=== PATIENT | female | born 1955 | race Caucasian/White ===

== ENCOUNTER 2017-03-13 11:21 | Emergency (ER) | payer MEDICARE, OTHER ==
[2017-03-13 11:31] VITALS: BP 118/61; PULSE 81; RESP 16; TEMP 99
--- NOTE | 2017-03-13 12:01 | ED ---
General Adult HPI - General Chief complaint: Extremity Injury, Upper Stated complaint: rt arm injury, swelling Time Seen by Provider: 03/13/17 11:50 Source: patient, RN notes reviewed Mode of arrival: ambulatory Limitations: no limitations - History of Present Illness Initial comments: Patient 61-year-old female who presents emergency room today with a chief complaint of increased pain to the right wrist. She does admit to a fall that occurred for 5 days ago. She states she fell backwards. She does admit that she's had some bruising and some swelling locally to the area. She states she' s noticed a bump that is very tender. She denies any other complaints or associated symptoms. Patient denies any recent fever, chills, shortness of breath, chest pain, back pain, abdominal pain, nausea or vomiting, numbness or tingling, dysuria or hematuria, constipation or diarrhea, headaches or visual changes, or any other complaints. - Related Data Home Medications Medication Instructions Recorded Confirmed HYDROcodone/APAP 10-325MG [[place] 10 mg PO QID PRN 01/17/14 03/13/17 10-325] clonazePAM [KlonoPIN] 2 mg PO TID 01/17/14 03/13/17 Venlafaxine HCl ER [Effexor Xr] 150 mg PO QAM 02/19/15 03/13/17 Aspirin [Adult Low Dose Aspirin EC] 81 mg PO DAILY 11/26/15 03/13/17 QUEtiapine [SEROquel] 100 mg PO HS 01/21/16 03/13/17 Meloxicam [Mobic] 15 mg PO DAILY 03/13/17 03/13/17 Pravastatin Sodium [Pravachol] 40 mg PO QAM 03/13/17 03/13/17 Venlafaxine HCl [Effexor XR] 75 mg PO QAM 03/13/17 03/13/17 Allergies Allergy/AdvReac Type Severity Reaction Status Date / Time No Known Allergies Allergy Verified 03/13/17 11:52 Review of Systems ROS Statement: Those systems with pertinent positive or pertinent negative responses have been documented in the HPI. ROS Other: All systems not noted in ROS Statement are negative. Past Medical History Past Medical History: COPD, Hyperlipidemia Additional Past Medical History / Comment(s): "PINCHED NERVE", CHRONIC BACK PAIN. History of Any Multi-Drug Resistant Organisms: None Reported Past Surgical History: Hysterectomy Additional Past Surgical History / Comment(s): EXC PADMINI CATARACTS. PAIN CLINIC PROCEDURES, Past Anesthesia/Blood Transfusion Reactions: No Reported Reaction Past Psychological History: Anxiety, Depression Smoking Status: Current every day smoker Past Alcohol Use History: Occasional Past Drug Use History: None Reported - Past Family History Father Family Medical History: Cancer Additional Family Medical History / Comment(s): COLON CA Sister(s) Family Medical History: Cancer Additional Family Medical History / Comment(s): 2 SISTERS HAD CA General Exam - General Exam Comments Initial Comments: General: The patient is awake and alert, in no distress, and does not appear acutely ill. Neck: The neck is supple, there is no tenderness or JVD. Cardiovascular: There is a regular rate and rhythm. No murmur, rub or gallop is appreciated. Respiratory: Lungs are clear to auscultation, respirations are non-labored, breath sounds are equal. No wheezes, stridor, rales, or rhonchi. Musculoskeletal: Patient does have some bruising swelling to the right wrist and right hand. No tenderness down to the hand or digits. Patient is tender over the distal right ulna. No tenderness to the right elbow. Shows full range of motion all areas. Strength is 5/5. Sensation intact. Pulses equal bilaterally 2+. Neurological: A&O x 3. CN II-XII intact, There are no obvious motor or sensory deficits. Coordination appears grossly intact. Speech is normal. Skin: Skin is warm and dry and no rashes or lesions are noted. Psychiatric: Normal mood and affect. Limitations: no limitations Course Vital Signs 03/13/17 11:29 Temperature 99 F Pulse Rate 81 Respiratory 16 Rate Blood Pressure 118/61 O2 Sat by Pulse 97 Oximetry Medical Decision Making - Medical Decision Making Patient presents to the emergency room for an injury to the right wrist. X-ray was ordered. Prior to x-rays being obtained patient left without telling nursing staff. Disposition Clinical Impression: Wrist injury Disposition: Left Against Medical Advice Condition: Undetermined Referrals: Destinee Godfrey MD [Primary Care Provider] - 1-2 days Time of Disposition: 12:03 (Patient eloped)
== END 2017-03-13 12:02 | disposition left against medical advice (07) ==
LOC: EC 11:21
DX: S60.211A Contusion of right wrist, initial encounter (principal); E78.5 Hyperlipidemia, unspecified; G89.29 Other chronic pain; F32.9 Major depressive disorder, single episode, unspecified; F41.9 Anxiety disorder, unspecified; F17.200 Nicotine dependence, unspecified, uncomplicated; Z79.1 Long term (current) use of non-steroidal anti-inflammatories (NSAID); Z79.82 Long term (current) use of aspirin; Z79.899 Other long term (current) drug therapy; W18.30XA Fall on same level, unspecified, initial encounter
CPT/HCPCS: 99283

== ENCOUNTER 2017-03-20 09:04 | Emergency (ER) | payer MEDICARE, OTHER ==
--- NOTE | 2017-03-20 09:46 | ED ---
Fall HPI - General Chief Complaint: Fall Stated Complaint: fall Time Seen by Provider: 03/20/17 09:11 Source: patient, old records reviewed Mode of arrival: ambulatory - History of Present Illness Initial Comments: Patient is a 61-year-old female presents to the emergency room for evaluation of multiple complaints. Patient states that she slipped down steps out of a pool on 03/07/17. Patient states after the incident she began having right wrist pain and swelling along with tailbone pain. Patient states that she was seen here about a week later but was unable to get any x-rays done because her ride was here and she left. Patient states she is still continuing to have right wrist pain, swelling and bruising now in her hand. Patient states it hurts to press over the area where she has a large bump over her wrist that was present since the fall injury. Patient states she still continued to have tailbone pain from when she fell. Patient denies saddle anesthesia. Patient denies urinary or fecal incontinence. Patient denies pain radiating down the legs. Patient states she takes Penn Laird for chronic pain which is not helping. Patient also states that she's having right foot pain. Patient states that her headboard fell on top of her foot a few weeks ago and has been causing her pain ever since. Patient denies any other injuries or complaints at this time. - Related Data Home Medications Medication Instructions Recorded Confirmed HYDROcodone/APAP 10-325MG [[place] 10 mg PO QID PRN 01/17/14 03/20/17 10-325] clonazePAM [KlonoPIN] 2 mg PO TID 01/17/14 03/20/17 Venlafaxine HCl ER [Effexor Xr] 150 mg PO QAM 02/19/15 03/20/17 Aspirin [Adult Low Dose Aspirin EC] 81 mg PO DAILY 11/26/15 03/20/17 QUEtiapine [SEROquel] 100 mg PO HS 01/21/16 03/20/17 Meloxicam [Mobic] 15 mg PO DAILY 03/13/17 03/20/17 Pravastatin Sodium [Pravachol] 40 mg PO QAM 03/13/17 03/20/17 Venlafaxine HCl [Effexor XR] 75 mg PO QAM 03/13/17 03/20/17 Allergies Allergy/AdvReac Type Severity Reaction Status Date / Time No Known Allergies Allergy Verified 03/20/17 10:19 Review of Systems ROS Statement: Those systems with pertinent positive or pertinent negative responses have been documented in the HPI. ROS Other: All systems not noted in ROS Statement are negative. Past Medical History Past Medical History: COPD, Hyperlipidemia Additional Past Medical History / Comment(s): "PINCHED NERVE", CHRONIC BACK PAIN. History of Any Multi-Drug Resistant Organisms: None Reported Past Surgical History: Hysterectomy Additional Past Surgical History / Comment(s): EXC PADMINI CATARACTS. PAIN CLINIC PROCEDURES, Past Anesthesia/Blood Transfusion Reactions: No Reported Reaction Past Psychological History: Anxiety, Depression Smoking Status: Current every day smoker Past Alcohol Use History: Occasional Past Drug Use History: None Reported - Past Family History Father Family Medical History: Cancer Additional Family Medical History / Comment(s): COLON [place] Sister(s) Family Medical History: Cancer Additional Family Medical History / Comment(s): 2 SISTERS HAD CA General Exam - General Exam Comments Initial Comments: Sitting exam room no acute distress. Limitations: no limitations General appearance: alert, in no apparent distress Head exam: Present: atraumatic, normocephalic, normal inspection Eye exam: Present: normal appearance, PERRL, EOMI Pupils: Present: normal accommodation ENT exam: Present: normal exam Neck exam: Present: normal inspection Respiratory exam: Present: normal lung sounds bilaterally. Absent: respiratory distress Cardiovascular Exam: Present: regular rate, normal rhythm, normal heart sounds Right Hand Wrist exam: Present: full ROM, tenderness (Tenderness and swelling over the dorsal portion of the wrist with a small palpable lump.), ecchymosis ( Ecchymosis over the dorsal portion of the wrist and dorsal hand). Absent: normal inspection Neuro motor exam: Present: wrist extension intact, thumb opposition intact, thumb IP flexion intact, thumb adduction intact, fingers 2-5 abduction intact Vascular: Present: normal capillary refill (Capillary refill less than 2 seconds ), radial pulse (2+), ulnar pulse (2+) Right Foot/Toe exam: Present: normal inspection, full ROM, tenderness (Tenderness on palpating over dorsal foot). Absent: swelling, abrasion Neurovascular tendon exam: Present: no vascular compromise. Absent: pulse deficit (2+ dorsal pedal and posterior tibial pulses), abnormal cap refill ( Capillary refill less than 2 seconds) Back exam: Present: normal inspection, other (Pain on palpating over the coccyx bone.) Neurological exam: Present: alert, oriented X3, CN II-XII intact, normal gait Psychiatric exam: Present: normal affect, normal mood Skin exam: Present: warm, dry, intact, normal color. Absent: rash Course Vital Signs 03/20/17 03/20/17 09:05 11:24 Temperature 97.5 F L 97.6 F Pulse Rate 81 73 Respiratory 17 19 Rate Blood Pressure 141/72 154/70 O2 Sat by Pulse 97 100 Oximetry Medical Decision Making - Medical Decision Making patient is a 61-year-old female presents to the emergency room for evaluation of fall injury on 03/07/17. X-ray showed no acute findings. Patient advised to apply heat over hematoma area of wrist and to follow-up with primary care provider if symptoms are not improving. Patient has Penn Laird at home for pain. Patient states she understands everything that was discussed with her. Return parameters discussed. Case discussed with Dr. Lau. - Radiology Data Radiology results: report reviewed, image reviewed Disposition Clinical Impression: Fall, Traumatic hematoma of right wrist, Contusion of foot, right, Tailbone injury Disposition: HOME SELF-CARE Condition: Good Instructions: Contusion in Adults (ED), Hematoma (ED) Additional Instructions: Continue taking at home pain medications as needed. Please follow-up with primary care provider in 7-10 days if symptoms are not improving. If new symptoms develop or symptoms worsen, please return to the ER. Referrals: Destinee Godfrey MD [Primary Care Provider] - 1-2 days Time of Disposition: 11:15
--- NOTE | 2017-03-20 10:19 | XR ---
EXAMINATION TYPE: XR forearm RT DATE OF EXAM: 03/20/2017 COMPARISON: NONE HISTORY: Pain Two views of the forearm demonstrate that the osseous structures appear to be intact and the joint sp aces appear to be preserved. There is no acute fracture or dislocation. IMPRESSION: 1. No acute fracture or dislocation
--- NOTE | 2017-03-20 10:19 | XR ---
EXAMINATION TYPE: XR wrist complete RT DATE OF EXAM: 03/20/2017 COMPARISON: NONE HISTORY: Pain TECHNIQUE: Four views submitted. FINDINGS: The osseous structures are intact. The joint spaces are preserved and there is no acute fracture or dislocation. IMPRESSION: 1. No definite acute fracture or dislocation if symptoms persist, follow-up study in 7 to 10 days wo uld be suggested
--- NOTE | 2017-03-20 10:22 | XR ---
EXAMINATION TYPE: XR sacrum coccyx DATE OF EXAM: 03/20/2017 COMPARISON: NONE HISTORY: Pain Three views are submitted. Sacrum is intact. SI joints are symmetric. Coccyx appears to be intact. Visualized pelvic structures intact. IMPRESSION: 1. No acute fracture. There is thickening and fullness to the sacrococcygeal segment. Recommend kiet rt-term outpatient MRI for further assessment
--- NOTE | 2017-03-20 10:24 | XR ---
EXAMINATION TYPE: XR hand complete RT DATE OF EXAM: 03/20/2017 COMPARISON: NONE HISTORY: 61-year-old female pain after fall 2 weeks ago TECHNIQUE: 3 views FINDINGS: There is some bony irregularity seen along the ulnar sided base of the first proximal phalanx suggest ing prior capsular or UCL injury. Tiny ossific density along the ulnar aspect of the second DIP joint . Otherwise, no acute fracture, subluxation, or dislocation. IMPRESSION: 1. Tiny density along the ulnar aspect of the second DIP joint. If there is any pinpoint tenderness h ere, this could represent a tiny fragmented spur or tiny capsular avulsion fracture. If there is no p ain here, the finding is probably chronic. 2. Bony findings along the thumb suggests prior UCL injury. 3. Otherwise, no acute osseous abnormality seen.
--- NOTE | 2017-03-20 10:25 | XR ---
EXAMINATION TYPE: XR foot complete RT DATE OF EXAM: 03/20/2017 COMPARISON: 06/17/2014 HISTORY: 61-year-old female pain from recent contusion TECHNIQUE: 3 views FINDINGS: Moderate degenerative change at the first MTP joint. Prominent bunion. No acute fracture, subluxation , or dislocation. IMPRESSION: Prominent bunion and moderate first MTP joint OA. No acute osseous abnormality seen.
[2017-03-20 11:27] VITALS: BP 154/70; PULSE 73; RESP 19; TEMP 97.6
== END 2017-03-20 11:27 | disposition home or self-care (01) ==
LOC: EC 09:04
DX: S60.211A Contusion of right wrist, initial encounter (principal); S90.31XA Contusion of right foot, initial encounter; S39.92XA Unspecified injury of lower back, initial encounter; E78.5 Hyperlipidemia, unspecified; F32.9 Major depressive disorder, single episode, unspecified; F41.9 Anxiety disorder, unspecified; F17.200 Nicotine dependence, unspecified, uncomplicated; Z79.1 Long term (current) use of non-steroidal anti-inflammatories (NSAID); Z79.82 Long term (current) use of aspirin; Z79.899 Other long term (current) drug therapy; W10.9XXA Fall (on) (from) unspecified stairs and steps, initial encounter
CPT/HCPCS: 72220; 99284

== ENCOUNTER → 2018-02-25 | Outpatient (CLI) | payer MEDICARE, OTHER ==
--- NOTE | 2018-03-01 07:56 | MM ---
Reason for exam: screening (asymptomatic). Last mammogram was performed 2 years and 5 months ago. History: Patient is postmenopausal. Family history of breast cancer in paternal grandmother at age 55. Took estrogen for 2 years 8 months. Physical Findings: A clinical breast exam by your physician is recommended on an annual basis and results should be correlated with mammographic findings. MG 3D Screening Mammo W/Cad Bilateral CC and MLO view(s) were taken. Prior study comparison: October 05, 2015, bilateral MG screening mammo w CAD. October 04, 2014, bilateral MG screening mammo w CAD. There are scattered fibroglandular densities. Finding: There are typically benign round calcifications in the right breast. There is no discrete abnormality. ASSESSMENT: Benign, BI-RAD 2 RECOMMENDATION: Routine screening mammogram of both breasts in 1 year.
== END | disposition home or self-care (01) ==
LOC: RADMAMWWP 10:27
PROVIDERS: ATTEND Internal Medicine
DX: Z12.31 Encounter for screening mammogram for malignant neoplasm of breast (principal)
CPT/HCPCS: 77063; 77067

== ENCOUNTER → 2019-04-07 | Outpatient (CLI) | payer MEDICARE, OTHER ==
--- NOTE | 2019-04-07 13:58 | US ---
EXAMINATION TYPE: US liver DATE OF EXAM: 04/07/2019 COMPARISON: NONE CLINICAL HISTORY: R94.5 abnormal liver function. Abnormal liver function test. EXAM MEASUREMENTS: Liver Length: 17.5 cm Gallbladder Wall: 0.14 cm CBD: 0.3 cm Right Kidney: 9.8 x 4.0 x 4.4 cm Pancreas: Duct visualized 0.15 cm, within normal limits Liver: Increased attenuation throughout with suboptimal visualization of the portal triads, most com monly related to hepatic steatosis. Additionally there are two hypoechoic areas seen adjacent to gall bladder largest 2.4 x 1.3 x 2.2 centimeters. These areas likely represent focal fatty sparing. Gallbladder: wnl Evidence for sonographic Mor[place]aya's sign: No CBD: wnl Right Kidney: wnl IMPRESSION: Sonographic findings most commonly related to hepatic steatosis appearing moderate in deg ree. Correlate with liver function test results additionally there are 2 geographic areas of hypoatte nuation that likely represent focal fatty sparing. These could be confirmed with three-phase abdomen.
== END | disposition home or self-care (01) ==
LOC: RADUSWWP 11:15
PROVIDERS: ATTEND Internal Medicine
DX: R93.2 Abnormal findings on diagnostic imaging of liver and biliary tract (principal); R94.5 Abnormal results of liver function studies
CPT/HCPCS: 76705

== ENCOUNTER → 2019-06-05 | Outpatient (CLI) | payer MEDICARE, OTHER ==
--- NOTE | 2019-06-05 14:30 | XR ---
EXAMINATION TYPE: XR chest 2V DATE OF EXAM: 06/05/2019 HISTORY: COUGH. REFERENCE: Previous study dated 10/04/2014. FINDINGS: There is a stable cardiophrenic angle mass, likely representing epicardial fat pad. Lungs a re otherwise clear. Pleural spaces are clear. The heart is not enlarged. IMPRESSION: NO ACUTE INTRATHORACIC ABNORMALITY.
== END | disposition home or self-care (01) ==
LOC: RADXRMAIN 12:23
PROVIDERS: ATTEND Internal Medicine
DX: R05 Cough (principal)
CPT/HCPCS: 71046

== ENCOUNTER → 2019-08-26 | Outpatient (CLI) | payer MEDICARE, OTHER ==
--- NOTE | 2019-08-29 10:42 | MM ---
Reason for exam: screening (asymptomatic). Last mammogram was performed 1 year and 6 months ago. History: Patient is postmenopausal. Family history of breast cancer in paternal grandmother at age 55. Took estrogen for 2 years 8 months. Physical Findings: A clinical breast exam by your physician is recommended on an annual basis and results should be correlated with mammographic findings. MG 3D Screening Mammo W/Cad Bilateral CC and MLO view(s) were taken. Prior study comparison: February 25, 2018, bilateral MG 3d screening mammo w/cad. October 05, 2015, bilateral MG screening mammo w CAD. The breast tissue is heterogeneously dense. This may lower the sensitivity of mammography. There is no discrete abnormality. No significant changes when compared with prior studies. ASSESSMENT: Negative, BI-RAD 1 RECOMMENDATION: Routine screening mammogram of both breasts in 1 year.
== END | disposition home or self-care (01) ==
LOC: RADMAMWWP 13:31
PROVIDERS: ATTEND Internal Medicine
DX: Z12.31 Encounter for screening mammogram for malignant neoplasm of breast (principal)
CPT/HCPCS: 77063; 77067

== ENCOUNTER 2020-03-21 07:10 | Day surgery (SDC) | payer MEDICARE, OTHER ==
[2020-03-19 15:49] VITALS: BMI 26.7
[~2020-03-21 07:10] MED LIST: LACTATED RINGERS 1,000 ML IV SCH; LIDOCAINE 1% (10MG/ML) FOR IV START INTRADERMA PRN
[2020-03-21 08:01] VITALS: TEMP 96.8
[2020-03-21] MEDS ORDERED: PROPOFOL 10 MG/ML 20 ML VIAL IV ONE (08:01)
[2020-03-21 08:04] LABS: Glucose,Whole Blood 131 mg/dL (75-99)
[2020-03-21] MEDS ORDERED: IV FLUID CONTINUATION 1,000 ML IV ONE (08:22)
--- NOTE | 2020-03-21 08:26 | P.PCN ---
Date of Procedure: 03/21/20 Procedure(s) Performed: BRIEF HISTORY: Patient is a 64-year-old pleasant female scheduled for an elective colonoscopy as a part of evaluation of prior history of colon polyps. PROCEDURE PERFORMED: Colonoscopy with snare polypectomy. PREOPERATIVE DIAGNOSIS: History of colon polyps. IV sedation per Anesthesia. PROCEDURE: After informed consent was obtained, the patient, was brought into the endoscopy unit. IV sedation was administered by Anesthesia under continuous monitoring. Digital rectal examination was normal. Initially the Olympus CF-160 flexible video colonoscope was then inserted in the rectum, gradually advanced into the cecum without any difficulty. Careful examination was performed as the scope was gradually being withdrawn. Ileocecal valve and the appendiceal orifice were visualized and appeared normal. Prep was excellent. Mucosa of the cecum appeared normal. In the ascending colon there was a 7 mm polyp that was removed by snare polypectomy. Rest of the, ascending colon, transverse colon, descending colon, sigmoid colon, and rectum appeared normal. Scattered sigmoid diverticulosis. Retroflexion was performed in the rectum and no lesions were seen. The patient tolerated the procedure well. IMPRESSION: 7 mm ascending colon polyp status post polypectomy Scattered sigmoid diverticulosis RECOMMENDATIONS: Findings of this examination were discussed with the patient as well as her family. She was advised to follow with the biopsy results. If the biopsy shows an adenoma she can have a repeat colonoscopy in 5 years.
[2020-03-21 08:42] VITALS: BP 141/66; PULSE 80; RESP 18
== END 2020-03-21 09:07 | disposition home or self-care (01) ==
LOC: ORWHC2ENDO 07:10
PROVIDERS: ATTEND Internal Medicine Gastroenterology
DX: Z12.11 Encounter for screening for malignant neoplasm of colon (principal); D12.2 Benign neoplasm of ascending colon; K57.30 Diverticulosis of large intestine without perforation or abscess without bleeding; Z86.010 Personal history of colon polyps; K58.9 Irritable bowel syndrome, unspecified; I10 Essential (primary) hypertension; E78.5 Hyperlipidemia, unspecified; F17.210 Nicotine dependence, cigarettes, uncomplicated; E11.9 Type 2 diabetes mellitus without complications; F32.9 Major depressive disorder, single episode, unspecified; Z79.84 Long term (current) use of oral hypoglycemic drugs; Z79.899 Other long term (current) drug therapy; Z98.41 Cataract extraction status, right eye; Z98.42 Cataract extraction status, left eye; Z90.710 Acquired absence of both cervix and uterus; Z88.1 Allergy status to other antibiotic agents; Z88.5 Allergy status to narcotic agent
CPT/HCPCS: 88305; 45385; J2704

== ENCOUNTER → 2020-04-20 | Outpatient (CLI) | payer MEDICARE ==
--- NOTE | 2020-04-20 15:49 | US ---
EXAMINATION TYPE: US gallbladder DATE OF EXAM: 04/20/2020 COMPARISON: 04/07/2019 CLINICAL HISTORY: 64-year-old female R10.11 RUQ ABD PAIN. Pt states RUQ pain post prandial TECHNIQUE: Multiple sonographic images of the right upper quadrant pain. FINDINGS: EXAM MEASUREMENTS: Liver Length: 17.1 cm Gallbladder Wall: 0.1 cm CBD: 0.4 cm Right Kidney: 10.1 x 3.6 x 4.3 cm Pancreas: wnl, tail obscured by overlying bowel gas. Borderline dilated main pancreatic duct at 3 mm . Liver: Difficult to penetrate, heterogeneous with multiple probable areas of fatty sparing near port a and GB Gallbladder: wnl Evidence for sonographic [place]aya's sign: No CBD: wnl Right Kidney: wnl IMPRESSION: 1. Severe hepatic steatosis. Correlate with LFTs and lipid profile, the uterus factors. 2. The main hepatic duct is borderline dilated. This may be chronic for the patient as a sequela of p rior inflammation. Correlate with amylase and lipase levels. Consider short interval follow-up to naeem ssess the duct in 4-6 weeks especially as the entire pancreas could not be optimally visualized.
== END | disposition home or self-care (01) ==
LOC: RADUSWWP 12:10
PROVIDERS: ATTEND Internal Medicine
DX: K76.0 Fatty (change of) liver, not elsewhere classified (principal); K83.8 Other specified diseases of biliary tract
CPT/HCPCS: 76705

== ENCOUNTER 2020-12-20 16:47 | Emergency (ER) | payer MEDICARE, OTHER ==
[2020-12-20 16:57] VITALS: RESP 18; TEMP 98.7
[2020-12-20] MEDS ORDERED: SODIUM CHLORIDE 0.9% 1,000 ML IV STA (18:00)
--- NOTE | 2020-12-20 18:14 | ED ---
General Adult HPI - General Chief complaint: Shortness of Breath Stated complaint: Covid+, SOB Time Seen by Provider: 12/20/20 16:50 Source: patient, EMS, RN notes reviewed, old records reviewed Mode of arrival: EMS - History of Present Illness Initial comments: This is a 65-year-old female presents emergency Department with the complaint that her cold symptoms are worsening. Patient states that she was diagnosed with COVID on the sixth but she had symptoms at the beginning of the month. Patient states her fatigue is getting worse she's lightheaded and having some shortness of breath per patient denies any chest pain or palpitations. Patient denies abdominal pain patient denies nausea vomiting or diarrhea. Patient denies any recent injury or trauma. Patient denies any headache patient denies any numbness or weakness. - Related Data Home Medications Medication Instructions Recorded Confirmed HYDROcodone/APAP 10-325MG [[place] 10 mg PO QID PRN 01/17/14 03/21/20 10-325] clonazePAM [KlonoPIN] 2 mg PO BID 01/17/14 03/21/20 Venlafaxine HCl ER [Effexor Xr] 150 mg PO QAM 02/19/15 03/21/20 QUEtiapine [SEROquel] 150 mg PO HS 01/21/16 03/21/20 Pravastatin Sodium [Pravachol] 40 mg PO QAM 03/13/17 03/21/20 Albuterol Inhaler [Ventolin Hfa 1 puff INHALATION DAILY PRN 03/19/20 03/21/20 Inhaler] Dicyclomine HCl 10 mg PO BID 03/19/20 03/21/20 Ergocalciferol [Vitamin D2] 50,000 unit PO HARMAN 03/19/20 03/21/20 clonazePAM [KlonoPIN] 1 mg PO 1400 03/19/20 03/21/20 metFORMIN HCL [Glucophage] 500 mg PO BID 03/19/20 03/21/20 Allergies Allergy/AdvReac Type Severity Reaction Status Date / Time No Known Allergies Allergy Verified 03/21/20 07:56 Review of Systems ROS Statement: Those systems with pertinent positive or pertinent negative responses have been documented in the HPI. ROS Other: All systems not noted in ROS Statement are negative. Past Medical History Past Medical History: COPD, Diabetes Mellitus, Hyperlipidemia Additional Past Medical History / Comment(s): "PINCHED NERVE", CHRONIC BACK PAIN. hx colon polyps History of Any Multi-Drug Resistant Organisms: None Reported Past Surgical History: Hysterectomy Additional Past Surgical History / Comment(s): EXC PADMINI CATARACTS. PAIN CLINIC PROCEDURES, Past Anesthesia/Blood Transfusion Reactions: No Reported Reaction, Motion Sickness Past Psychological History: Anxiety, Depression Smoking Status: Current every day smoker Past Alcohol Use History: Occasional Past Drug Use History: Marijuana - Past Family History Father Family Medical History: Cancer Additional Family Medical History / Comment(s): COLON CA Sister(s) Family Medical History: Cancer Additional Family Medical History / Comment(s): 2 SISTERS HAD CA General Exam - General Exam Comments Initial Comments: GENERAL: Patient is well-developed and well-nourished. Patient is nontoxic and well- hydrated and is in mild distress. ENT: Neck is soft and supple. No significant lymphadenopathy is noted. Oropharynx is clear. Moist mucous membranes. Neck has full range of motion without eliciting any pain. EYES: The sclera were anicteric and conjunctiva were pink and moist. Extraocular movements were intact and pupils were equal round and reactive to light. Eyelids were unremarkable. PULMONARY: Unlabored respirations. Good breath sounds bilaterally. No audible rales rhonchi or wheezing was noted. CARDIOVASCULAR: There is a regular rate and rhythm without any murmurs gallops or rubs. ABDOMEN: Soft and nontender with normal bowel sounds. SKIN: Skin is clear with no lesions or rashes and otherwise unremarkable. NEUROLOGIC: Patient is alert and oriented x3. Cranial nerves II through XII are grossly intact. Motor and sensory are also intact. Normal speech, volume and content. Symmetrical smile. MUSCULOSKELETAL: Normal extremities with adequate strength and full range of motion. No lower extremity swelling or edema. No calf tenderness. LYMPHATICS: No significant lymphadenopathy is noted PSYCHIATRIC: Normal psychiatric evaluation. Course Vital Signs 12/20/20 12/20/20 16:49 19:44 Temperature 98.7 F Pulse Rate 78 70 Respiratory 18 18 Rate Blood Pressure 106/65 93/60 O2 Sat by Pulse 96 97 Oximetry Medical Decision Making - Medical Decision Making EKG shows normal sinus rhythm at 81 bpm [place] interval 160 QRS is 76 QT intervals 380 QTC is 441. Patient's EKG shows no ST segment elevation or depression. Chest x-ray shows no acute abnormality. - Lab Data Result diagrams: 12/20/20 18:07 12/20/20 18:07 Lab Results 12/20/20 12/20/20 12/20/20 Range/Units 18:07 18:07 18:07 WBC 11.3 H (3.8-10.6) k/uL RBC 4.80 (3.80-5.40) m/uL Hgb 14.4 (11.4-16.0) gm/dL Hct 42.3 (34.0-46.0) % MCV 88.0 (80.0-100.0) fL MCH 30.1 (25.0-35.0) pg MCHC 34.2 (31.0-37.0) g/dL RDW 12.8 (11.5-15.5) % Plt Count 275 (150-450) k/uL MPV 7.7 Neutrophils % 54 % Lymphocytes % 33 % Monocytes % 8 % Eosinophils % 2 % Basophils % 0 % Neutrophils # 6.1 (1.3-7.7) k/uL Lymphocytes # 3.8 (1.0-4.8) k/uL Monocytes # 0.9 (0-1.0) k/uL Eosinophils # 0.2 (0-0.7) k/uL Basophils # 0.0 (0-0.2) k/uL D-Dimer 0.46 (<0.60) mg/L FEU Sodium 140 (137-145) mmol/L Potassium 4.5 (3.5-5.1) mmol/L Chloride 104 (98-107) mmol/L Carbon Dioxide 26 (22-30) mmol/L Anion Gap 10 mmol/L BUN 17 (7-17) mg/dL Creatinine 0.74 (0.52-1.04) mg/dL Est GFR (CKD-EPI)AfAm >90 (>60 ml/min/1.73 sqM) Est GFR (CKD-EPI)NonAf 87 (>60 ml/min/1.73 sqM) Glucose 131 H (74-99) mg/dL Calcium 9.8 (8.4-10.2) mg/dL Magnesium 2.1 (1.6-2.3) mg/dL Total Bilirubin 0.4 (0.2-1.3) mg/dL AST 20 (14-36) U/L ALT 18 (4-34) U/L Alkaline Phosphatase 108 (38-126) U/L Total Protein 6.5 (6.3-8.2) g/dL Albumin 3.9 (3.5-5.0) g/dL Disposition Clinical Impression: COVID-19 Disposition: HOME SELF-CARE Condition: Good Instructions (If sedation given, give patient instructions): Coronavirus Disease 2019 (COVID-19) Is patient prescribed a controlled substance at d/c from ED?: No Referrals: Destinee Godfrey MD [Primary Care Provider] - 1-2 days Time of Disposition: 19:46
[2020-12-20 18:17] LABS: Basophils % (A) 0 %; Eosinophils # (A) 0.2 k/uL (0-0.7); Eosinophils % (A) 2 %; HCT 42.3 % (34.0-46.0); HGB 14.4 gm/dL (11.4-16.0); Lymphocytes # (A) 3.8 k/uL (1.0-4.8); Lymphocytes % (A) 33 %; MCH 30.1 pg (25.0-35.0); MCHC 34.2 g/dL (31.0-37.0); Mean Platelet Volume 7.7; Monocytes # (A) 0.9 k/uL (0-1.0); Monocytes % (A) 8 %; Neutrophils # (A) 6.1 k/uL (1.3-7.7); Neutrophils % (A) 54 %; Platelet Count 275 k/uL (150-450); RDW 12.8 % (11.5-15.5); WBC 11.3 k/uL (3.8-10.6)
[2020-12-20 18:25] LABS: ALT 18 U/L (4-34); AST 20 U/L (14-36); African American GFR (CKD) >90 (>60 ml/min/1.73 sqM); Albumin 3.9 g/dL (3.5-5.0); Alkaline Phosphatase 108 U/L (38-126); Anion Gap 10 mmol/L; Blood Urea Nitrogen 17 mg/dL (7-17); Calcium 9.8 mg/dL (8.4-10.2); Carbon Dioxide 26 mmol/L (22-30); Chloride 104 mmol/L (98-107); Glucose 131 mg/dL (74-99); Magnesium 2.1 mg/dL (1.6-2.3); Non-African American GFR(CKD) 87 (>60 ml/min/1.73 sqM); Potassium 4.5 mmol/L (3.5-5.1); Sodium 140 mmol/L (137-145); Total Bilirubin 0.4 mg/dL (0.2-1.3); Total Protein 6.5 g/dL (6.3-8.2)
--- NOTE | 2020-12-20 19:05 | XR ---
EXAMINATION: XR chest 2V DATE AND TIME: 12/20/2020 6:18 PM CLINICAL INDICATION: PHH; Chest Pain TECHNIQUE: Departmental protocol COMPARISON: 06/05/2019 FINDINGS: The lungs are clear. The pleural spaces are negative. The cardiac silhouette is not enlarged. The remainder of the mediastinal silhouette is unremarkable. The skeletal structures and soft tissues are negative for acute findings. IMPRESSION: No acute radiographic process; stable appearance.
[2020-12-20 19:44] VITALS: BP 93/60; PULSE 70
== END 2020-12-20 20:16 | disposition home or self-care (01) ==
LOC: EC 16:47
DX: U07.1 COVID-19 (principal); E78.5 Hyperlipidemia, unspecified; F17.200 Nicotine dependence, unspecified, uncomplicated; J44.9 Chronic obstructive pulmonary disease, unspecified; E11.9 Type 2 diabetes mellitus without complications; F12.90 Cannabis use, unspecified, uncomplicated; F41.9 Anxiety disorder, unspecified; F32.9 Major depressive disorder, single episode, unspecified; Z79.899 Other long term (current) drug therapy; Z79.84 Long term (current) use of oral hypoglycemic drugs
CPT/HCPCS: 36415; 71046; 80053; 83735; 85025; 85379; 93005; 96360; 99285

== ENCOUNTER → 2020-12-25 | Outpatient (CLI) | payer MEDICARE, OTHER ==
--- NOTE | 2020-12-25 20:21 | XR ---
EXAMINATION TYPE: XR chest 2V DATE OF EXAM: 12/25/2020 CLINICAL HISTORY: M79.642. Short of breath. Covid positive and beginning of December. TECHNIQUE: Frontal and lateral view of the chest. COMPARISON: 12/20/2020 chest radiograph FINDINGS: The cardiomediastinal silhouette is within normal limits for size. Pulmonary vasculature i s normal. There is no focal air space opacity, pleural effusion, or pneumothorax seen. Degenerative c hanges of the spine. IMPRESSION: No acute cardiopulmonary process.
== END | disposition home or self-care (01) ==
LOC: RADXRMAIN 17:41
PROVIDERS: ATTEND Internal Medicine
DX: R06.02 Shortness of breath (principal)
CPT/HCPCS: 71046

== ENCOUNTER → 2021-01-22 | Outpatient (CLI) | payer MEDICARE, OTHER ==
--- NOTE | 2021-01-24 14:47 | MM ---
Reason for exam: screening (asymptomatic). Last mammogram was performed 1 year and 5 months ago. History: Patient is postmenopausal. Family history of breast cancer in paternal grandmother at age 55 and breast cancer in paternal aunt. Took estrogen for 2 years 8 months. Physical Findings: A clinical breast exam by your physician is recommended on an annual basis and results should be correlated with mammographic findings. MG 3D Screening Mammo W/Cad Bilateral CC and MLO view(s) were taken. Prior study comparison: August 26, 2019, bilateral MG 3d screening mammo w/cad. February 25, 2018, bilateral MG 3d screening mammo w/cad. The breast tissue is heterogeneously dense. This may lower the sensitivity of mammography. Stable benign calcifications. There is no discrete abnormality. No significant changes when compared with prior studies. ASSESSMENT: Benign, BI-RAD 2 RECOMMENDATION: Routine screening mammogram of both breasts in 1 year.
== END | disposition home or self-care (01) ==
LOC: RADMAMWWP 09:50
PROVIDERS: ATTEND Internal Medicine
DX: Z12.31 Encounter for screening mammogram for malignant neoplasm of breast (principal); Z78.0 Asymptomatic menopausal state; Z80.3 Family history of malignant neoplasm of breast
CPT/HCPCS: 77063; 77067

== ENCOUNTER 2021-05-22 13:02 | Emergency (ER) | payer MEDICARE, OTHER ==
[2021-05-22] MEDS ORDERED: HYDROcodone/APAP 5-325MG 1 EACH TAB PO STA (13:29)
[2021-05-22] MEDS ORDERED: KETOROLAC 15 MG/ML 1 ML VIAL IVP STA (13:29)
--- NOTE | 2021-05-22 13:34 | ED ---
Chest Pain HPI - General Chief Complaint: Chest Pain Stated Complaint: Chest Pain Time Seen by Provider: 05/22/21 13:05 Source: patient, RN notes reviewed, old records reviewed Mode of arrival: ambulatory Limitations: no limitations - History of Present Illness Initial Comments: This is a 65-year-old female who presents emergency department with past medical history significant for diabetes and high cholesterol as well as a current smoker. Patient comes in today she states she's had a chest pain on the left side that sharp in nature and worsens with deep breathing and occasionally movement. Patient states if she stays still and doesn't take deep breaths doesn't hurt. He states it started approximately 2 weeks ago. Patient states she feels as though she was short of breath when the pain is there but typically is fairly short-lived. Patient denies any recent fever chills or cough per patient states she's already had coded and she's already had her 2 shots for her vaccination. Patient denies any palpitations per patient denies abdominal pain. Patient denies any nausea vomiting diarrhea per patient states occasionally she's been a little bit lightheaded. Patient denies any leg swelling or calf tenderness. Patient denies any history of blood clots. - Related Data Home Medications Medication Instructions Recorded Confirmed HYDROcodone/APAP 10-325MG [[place] 10 mg PO Q6H PRN 01/17/14 05/22/21 10-325] clonazePAM [KlonoPIN] 2 mg PO TID 01/17/14 05/22/21 QUEtiapine [SEROquel] 100 mg PO HS 01/21/16 05/22/21 Pravastatin Sodium [Pravachol] 40 mg PO DAILY 03/13/17 05/22/21 Albuterol Inhaler [Ventolin Hfa 2 puff INHALATION RT-Q6H PRN 03/19/20 05/22/21 Inhaler] Dicyclomine HCl 10 mg PO TID 03/19/20 05/22/21 metFORMIN HCL [Glucophage] 500 mg PO BID 03/19/20 05/22/21 Ascorbic Acid [Vitamin C] 500 mg PO DAILY 05/22/21 05/22/21 Cholecalciferol [Vitamin D3 (25 50 mcg PO DAILY 05/22/21 05/22/21 Mcg = 1000 Iu)] Cinnamon Bark [Cinnamon] 500 mg PO DAILY 05/22/21 05/22/21 Multivitamin/Iron/Folic Acid 1 tab PO DAILY 05/22/21 05/22/21 [Centrum Women Tablet] QUEtiapine [SEROquel] 50 mg PO HS 05/22/21 05/22/21 Venlafaxine HCl [Effexor XR] 150 mg PO DAILY 05/22/21 05/22/21 Zinc 50 mg PO DAILY 05/22/21 05/22/21 Allergies Allergy/AdvReac Type Severity Reaction Status Date / Time No Known Allergies Allergy Verified 05/22/21 13:07 Review of Systems ROS Statement: Those systems with pertinent positive or pertinent negative responses have been documented in the HPI. ROS Other: All systems not noted in ROS Statement are negative. Past Medical History Past Medical History: COPD, Diabetes Mellitus, Hyperlipidemia Additional Past Medical History / Comment(s): "PINCHED NERVE", CHRONIC BACK PA IN. hx colon polyps History of Any Multi-Drug Resistant Organisms: None Reported Past Surgical History: Hysterectomy Additional Past Surgical History / Comment(s): EXC PADMINI CATARACTS. PAIN CLINIC PROCEDURES, Past Anesthesia/Blood Transfusion Reactions: No Reported Reaction, Motion Sickness Past Psychological History: Anxiety, Depression Smoking Status: Current every day smoker Past Alcohol Use History: Occasional Past Drug Use History: Marijuana - Past Family History Father Family Medical History: Cancer Additional Family Medical History / Comment(s): COLON CA Sister(s) Family Medical History: Cancer Additional Family Medical History / Comment(s): 2 SISTERS HAD CA General Exam - General Exam Comments Initial Comments: GENERAL: Patient is well-developed and well-nourished. Patient is nontoxic and well- hydrated and is in mild distress. ENT: Neck is soft and supple. No significant lymphadenopathy is noted. Oropharynx is clear. Moist mucous membranes. Neck has full range of motion without eliciting any pain. EYES: The sclera were anicteric and conjunctiva were pink and moist. Extraocular movements were intact and pupils were equal round and reactive to light. Eyelids were unremarkable. PULMONARY: Unlabored respirations. Good breath sounds bilaterally. No audible rales rhonchi or wheezing was noted. CARDIOVASCULAR: There is a regular rate and rhythm without any murmurs gallops or rubs. Patient's pain is somewhat reproducible with palpation. Particularly under the left breast. No rashes are noted ABDOMEN: Soft and nontender with normal bowel sounds. SKIN: Skin is clear with no lesions or rashes and otherwise unremarkable. NEUROLOGIC: Patient is alert and oriented x3. Cranial nerves II through XII are grossly intact. Motor and sensory are also intact. Normal speech, volume and content. Symmetrical smile. MUSCULOSKELETAL: Normal extremities with adequate strength and full range of motion. No lower extremity swelling or edema. No calf tenderness. LYMPHATICS: No significant lymphadenopathy is noted PSYCHIATRIC: Normal psychiatric evaluation. Limitations: no limitations Course Vital Signs 05/22/21 05/22/21 13:07 15:34 Temperature 98.1 F Pulse Rate 102 H 71 Respiratory 18 18 Rate Blood Pressure 120/75 114/89 O2 Sat by Pulse 98 99 Oximetry Chest Pain MDM - MDM EKG shows normal sinus rhythm at 93 bpm MT interval 280 QRSs 84 QT interval 360 QTC is 457. Patient's EKG shows no ST segment elevation or depression. Patient's d-dimer was elevated so I did a CT PE showed no dissection no PE and no pulmonary process. I will begin the room and the patient stated that she now remembers carrying a large amount of water a couple weeks ago when this all began and after she didn't urinate as well as when she began noticing the pain in the left side of her chest. Patient states she'll follow-up with Dr. Godfrey and does not want to be admitted. I spoke with Dr. Godfrey he agreed to see the patient tomorrow at 11 AM. Disposition Clinical Impression: Chest wall pain Disposition: HOME SELF-CARE Instructions (If sedation given, give patient instructions): Chest Pain (ED) Additional Instructions: Patient should take Motrin 400 mg every 6 to every 8 hours Is patient prescribed a controlled substance at d/c from ED?: No Referrals: Destinee Godfrey MD [Primary Care Provider] - 05/23/21 11:00 am Time of Disposition: 16:27
[2021-05-22 13:59] LABS: Basophils # (A) 0.1 k/uL (0-0.2); Basophils % (A) 1 %; Eosinophils # (A) 0.2 k/uL (0-0.7); Eosinophils % (A) 2 %; HCT 47.9 % (34.0-46.0); HGB 16.3 gm/dL (11.4-16.0); Lymphocytes # (A) 3.8 k/uL (1.0-4.8); Lymphocytes % (A) 39 %; MCH 31.1 pg (25.0-35.0); MCHC 33.9 g/dL (31.0-37.0); MCV 91.7 fL (80.0-100.0); Mean Platelet Volume 7.9; Monocytes # (A) 0.5 k/uL (0-1.0); Monocytes % (A) 6 %; Neutrophils # (A) 4.8 k/uL (1.3-7.7); Neutrophils % (A) 50 %; Platelet Count 236 k/uL (150-450); RBC 5.23 m/uL (3.80-5.40); RDW 12.6 % (11.5-15.5); WBC 9.7 k/uL (3.8-10.6)
[2021-05-22 14:13] LABS: INR 0.9 (<1.2)
--- NOTE | 2021-05-22 14:13 | XR ---
EXAMINATION TYPE: XR chest 2V DATE OF EXAM: 05/22/2021 COMPARISON: 12/25/2020 INDICATION: Chest pain TECHNIQUE: Frontal and lateral views of the chest are obtained. FINDINGS: The heart size is normal. The pulmonary vasculature is normal. The lungs are clear. IMPRESSION: 1. No acute pulmonary process.
[2021-05-22 14:18] LABS: ALT 23 U/L (4-34); AST 24 U/L (14-36); African American GFR (CKD) >90 (>60 ml/min/1.73 sqM); Albumin 4.4 g/dL (3.5-5.0); Alkaline Phosphatase 109 U/L (38-126); Blood Urea Nitrogen 24 mg/dL (7-17); Calcium 10.1 mg/dL (8.4-10.2); Carbon Dioxide 22 mmol/L (22-30); Chloride 106 mmol/L (98-107); Glucose 131 mg/dL (74-99); Magnesium 1.7 mg/dL (1.6-2.3); Non-African American GFR(CKD) >90 (>60 ml/min/1.73 sqM); Total Bilirubin 0.4 mg/dL (0.2-1.3); Total Protein 7.2 g/dL (6.3-8.2)
[2021-05-22 14:20] LABS: Anion Gap 11 mmol/L; Potassium 4.1 mmol/L (3.5-5.1); Sodium 139 mmol/L (137-145)
--- NOTE | 2021-05-22 15:58 | CT ---
EXAMINATION TYPE: CT chest angio for PE DATE OF EXAM: 05/22/2021 COMPARISON: None. HISTORY: Chest pains CT DLP: 229.5 mGycm Automated exposure control for dose reduction was used. CONTRAST: CT Chest for pulmonary embolism performed with with IV Contrast, patient injected with 100 mL of Isov ue 370. FINDINGS: LUNGS: Mild linear scarring and/or atelectasis in the lower lungs. No suspicious focal consolidation. There is no pleural effusion or pneumothorax seen. The tracheobronchial tree is patent. MEDIASTINUM: There is satisfactory enhancement of the pulmonary artery and its branches, there is no CT evidence for pulmonary embolism. Satisfactory enhancement of the aorta without aneurysm or dissect ion There are no greater than 1 cm hilar or mediastinal lymph nodes. Small to tiny pericardial effusi on is seen. No cardiomegaly. OTHER: Subtle underlying scoliosis. IMPRESSION: No CT evidence for acute pulmonary embolism. No thoracic aortic aneurysm or dissection. N o acute pulmonary process.
[2021-05-22 16:50] VITALS: BP 119/73; PULSE 73; RESP 17; TEMP 97.9
== END 2021-05-22 16:50 | disposition home or self-care (01) ==
LOC: EC 13:02
DX: R07.89 Other chest pain (principal); E11.9 Type 2 diabetes mellitus without complications; J44.9 Chronic obstructive pulmonary disease, unspecified; E78.5 Hyperlipidemia, unspecified; F32.9 Major depressive disorder, single episode, unspecified; F41.9 Anxiety disorder, unspecified; F12.90 Cannabis use, unspecified, uncomplicated; F17.200 Nicotine dependence, unspecified, uncomplicated; Z87.19 Personal history of other diseases of the digestive system; Z79.84 Long term (current) use of oral hypoglycemic drugs; Z79.899 Other long term (current) drug therapy
CPT/HCPCS: 36415; 93005; 85379; 80053; 83735; 84484; 85025; 85610; 85730; 71046; 71275; 99285; 96374; J1885; Q9967

== ENCOUNTER → 2021-07-25 | Outpatient (CLI) | payer MEDICARE, OTHER ==
--- NOTE | 2021-07-25 12:43 | XR ---
EXAMINATION TYPE: XR chest 2V DATE OF EXAM: 07/25/2021 COMPARISON: 05/22/21 HISTORY: Shortness of breath TECHNIQUE: Frontal and lateral views of the chest are obtained. FINDINGS: Scattered senescent parenchymal changes noted. Hyperinflation compatible with COPD. No evidence for infiltrate. No evidence for atelectasis. Heart size is stable. Mediastinal structures are stable and grossly unremarkable. No evidence for hilar prominence. Degenerative changes dorsal spine. IMPRESSION: 1. No evidence for acute pulmonary disease.
== END | disposition home or self-care (01) ==
LOC: RADXRMAIN 12:15
PROVIDERS: ATTEND Internal Medicine
DX: R06.02 Shortness of breath (principal)
CPT/HCPCS: 71046

== ENCOUNTER → 2022-03-31 | Outpatient (CLI) | payer MEDICARE, OTHER ==
--- NOTE | 2022-03-31 21:06 | MR ---
EXAMINATION TYPE: MR lumbar spine wo/w con DATE OF EXAM: 03/31/2022 5:25 PM COMPARISON: None CLINICAL INDICATION:Female, 66 years old with history of M54.50 LOW BACK PAIN UNSPECIFIED; TECHNIQUE: Multi planar, multi sequence imaging was performed utilizing: T1-weighted, T2-weighted, a nd of the lumbar spine. The patient was given 6 cc of Gadavist intravenously and postcontrast imagin g was performed utilizing T1 weighted fat saturation in both the sagittal and axial planes. FINDINGS: Alignment: The lumbar vertebral bodies have preserved heights and alignment. Cord: The conus medullaris and the distal spinal cord appear unremarkable with regards to their signa l intensity and morphology. No abnormal postcontrast enhancement. Bones/Discs: Bone signal is within normal limits. No abnormal postcontrast enhancement. L1-L2: No significant disc pathology. Spinal canal is patent. The neural foramen are patent. L2-L3: No significant disc pathology. Spinal canal is patent. The neural foramen are patent. L3-L4: No significant disc pathology. Spinal canal is patent. The neural foramen are patent. L4-L5: No significant disc pathology. Spinal canal is patent. The neural foramen are patent. L5-S1: Small central protrusion without significant spinal canal stenosis. Spinal canal is patent. Th e neural foramen are patent. Other findings: Left renal cyst IMPRESSION: No definitive evidence of disc herniation or significant spinal canal stenosis. No abnormal postcontr ast enhancement.
== END | disposition home or self-care (01) ==
LOC: RADMRIMAIN 16:29
PROVIDERS: ATTEND Internal Medicine
DX: M54.50 Low back pain, unspecified (principal); N28.1 Cyst of kidney, acquired
CPT/HCPCS: 72158; A9585

== ENCOUNTER → 2022-08-14 | Outpatient (CLI) | payer MEDICARE, OTHER ==
--- NOTE | 2022-08-15 07:45 | MM ---
Reason for Exam: Screening (asymptomatic). Last mammogram was performed 1 year(s) and 7 month(s) ago. Patient History: Menarche at age 18. First Full-Term at age 20. Left ovary removed at age 48. Right ovary removed at age 48. Hysterectomy at age 48. Postmenopausal. Estrogen for 2 years, 8 months. Paternal grandmother had breast cancer, age 55. Paternal aunt had breast cancer. Mother had breast cancer, age 86. Risk Values: Tiesha 5 year model risk: 2.7%. NCI Lifetime model risk: 10.8%. Prior Study Comparison: 02/25/2018 Bilateral Screening Mammogram, [facility]. 08/26/2019 Bilateral Screening Mammogram, [facility]. 01/22/2021 Bilateral Screening Mammogram, [facility]. Tissue Density: The breast tissue is heterogeneously dense. This may lower the sensitivity of mammography. Findings: Analyzed By CAD. There is occasional small benign round calcification throughout the bilateral breasts. There is no suspicious group of microcalcifications or new suspicious mass in either breast. Overall Assessment: Benign, BI-RAD 2 Management: Screening Mammogram of both breasts in 1 year. A clinical breast exam by your physician is recommended on an annual basis and results should be correlated with mammographic findings. Electronically signed and approved by: Markell Gunderson M.D.
== END | disposition home or self-care (01) ==
LOC: RADMAMWWP 13:26
PROVIDERS: ATTEND Internal Medicine
DX: Z12.31 Encounter for screening mammogram for malignant neoplasm of breast (principal); Z78.0 Asymptomatic menopausal state; Z80.3 Family history of malignant neoplasm of breast
CPT/HCPCS: 77063; 77067

== ENCOUNTER → 2023-10-19 | Outpatient (CLI) | payer MEDICARE, OTHER ==
--- NOTE | 2023-10-20 08:36 | MM ---
Reason for Exam: Screening (asymptomatic). Last mammogram was performed 1 year(s) and 2 month(s) ago. Patient History: Menarche at age 18. First Full-Term at age 20. Left ovary removed at age 48. Right ovary removed at age 48. Hysterectomy at age 48. Postmenopausal. Estrogen for 2 years, 8 months. Paternal grandmother had breast cancer, age 55. Paternal aunt had breast cancer. Mother had breast cancer, age 86. Risk Values: Tiesha 5 year model risk: 2.8%. NCI Lifetime model risk: 10.0%. Prior Study Comparison: 08/26/2019 Bilateral Screening Mammogram, [facility]. 01/22/2021 Bilateral Screening Mammogram, [facility]. 08/14/2022 Bilateral MG 3D screening mammo w/cad, [facility]. Tissue Density: The breast tissue is heterogeneously dense. This may lower the sensitivity of mammography. Findings: Analyzed By CAD. There is no suspicious group of microcalcifications or new suspicious mass. Overall Assessment: Negative, BI-RAD 1 Management: Screening Mammogram of both breasts in [address] [facility] will attempt to contact patient to return for supplemental views and ultrasound if indicated. Patient should continue monthly self-breast exams. A clinical breast exam by your physician is recommended on an annual basis. This exam should not preclude additional follow-up of suspicious palpable abnormalities. Note on Tiesha scores and lifetime risk: 1. A Tiesha score greater than 3% is considered moderate risk. If this is the case, consider specialist referral to assess eligibility for a risk reducing agent. 2. If overall lifetime risk for the development of breast cancer is 20% or higher, the patient may qualify for future screening with alternating mammogram and breast MRI. Electronically signed and approved by: Jim Byrd DO
== END | disposition home or self-care (01) ==
LOC: RADMAMWWP 12:22
PROVIDERS: ATTEND Internal Medicine
DX: Z12.31 Encounter for screening mammogram for malignant neoplasm of breast (principal); Z78.0 Asymptomatic menopausal state; Z80.3 Family history of malignant neoplasm of breast
CPT/HCPCS: 77063; 77067

== ENCOUNTER → 2024-01-28 | Outpatient (CLI) | payer MEDICARE, OTHER ==
--- NOTE | 2024-01-28 22:01 | XR ---
EXAMINATION TYPE: XR chest 2V DATE OF EXAM: 01/28/2024 COMPARISON: 07/25/2021 INDICATION: Cough TECHNIQUE: Frontal and lateral views of the chest are obtained. FINDINGS: The heart size is normal. The pulmonary vasculature is normal. The lungs are clear. IMPRESSION: 1. No acute pulmonary process.
== END | disposition home or self-care (01) ==
LOC: RADXRMAIN 16:51
PROVIDERS: ATTEND Internal Medicine
DX: R05.9 Cough, unspecified (principal)
CPT/HCPCS: 71046

== ENCOUNTER → 2024-08-01 | Outpatient (CLI) | payer MEDICARE, OTHER ==
--- NOTE | 2024-08-01 11:39 | XR ---
EXAMINATION TYPE: XR chest 2V DATE OF EXAM: 08/01/2024 10:32 AM COMPARISON: 01/28/2024 CLINICAL INDICATION: Female, 68 years old with history of R05.9 Cough, , TECHNIQUE: Frontal and lateral views FINDINGS: Heart normal size. Atherosclerotic arch calcifications. Hyperinflation. Strandy atelectasis left base . No consolidation or pleural effusion otherwise seen. Slight dextroconvex curvature centered at the lower thoracic spine. IMPRESSION: COPD. No acute process seen. [facility], , 08/01/2024 11:37 AM
== END | disposition home or self-care (01) ==
LOC: RADXRMAIN 10:19
PROVIDERS: ATTEND Internal Medicine
DX: J44.9 Chronic obstructive pulmonary disease, unspecified (principal); R05.9 Cough, unspecified
CPT/HCPCS: 71046